=== PATIENT | female | born 1935 ===

== ENCOUNTER → 2023-01-15 09:49 | Outpatient (BNVA) | payer MEDICARE, OTHER, SELFPAY | PROVIDERS: Family Provider Physician Assistant Medical; PCP Family Medicine; Referring Provider Family Medicine; Visit Provider Dermatology | DX: L82.1 Other seborrheic keratosis (principal); L72.0 Epidermal cyst; L81.4 Other melanin hyperpigmentation; L82.0 Inflamed seborrheic keratosis; L29.8 Other pruritus; Z78.9 Other specified health status; L53.8 Other specified erythematous conditions; L57.0 Actinic keratosis | CPT/HCPCS: 17000; 17003; 17110; 99203 ==

== ENCOUNTER 2023-09-17 15:32 | Emergency (ER) | payer MEDICARE, OTHER, SELFPAY ==
[2023-09-17 15:44] VITALS: BP 137/67; PULSE 96; RESP 18; TEMP 39.1; O2SAT 93
--- NOTE | 2023-09-17 16:11 | XRR_ITS ---
PROCEDURE INFORMATION: Exam: XR Chest Exam date and time: 09/17/2023 4:01 PM Age: 87 years old Clinical indication: Shortness of breath TECHNIQUE: Imaging protocol: Radiologic exam of the chest. Views: 1 view. COMPARISON: CR XR cervical spine 4-5V [id number] 10/13/2017 11:06 AM FINDINGS: Lungs: Emphysematous changes. Pleural spaces: Unremarkable. No pleural effusion. No pneumothorax. Heart/Mediastinum: Unremarkable. No cardiomegaly. Bones/joints: Unremarkable. XR/XR chest 1V [id number] IMPRESSION: Emphysematous changes, negative for infiltrate.
[2023-09-17 16:39] LABS: Basophils % 0.5 %; Eosinophils % 0.2 %; Lymphocytes # 0.7 10^3/uL (0.8-4.8); Lymphocytes % 15.8 %; Mean Corpuscular HGB Conc 32.1 g/dL (30-55); Mean Corpuscular Hemoglobin 29.6 pg (27-33); Mean Corpuscular Volume 92.4 fl (85-98); Mean Platelet Volume 10.4 fL (7.4-10.4); Monocytes # 0.6 10^3/uL (0.2-0.9); Monocytes % 14.4 %; Neutrophils # 2.92 10^3/uL (1.8-7.7); Neutrophils % 68.9 %; Nucleated Red Blood Cells % 0 %; Platelet Count 199 10^3/cmm (157-399); Red Blood Count 4.22 10^6/uL (3.85-5.65); White Blood Count 4.24 10^3/uL (3.29-11.43)
[2023-09-17 17:13] LABS: Alanine Aminotransferase 14 U/L (0-33); Albumin Level 4.1 g/dL (3.5-5.2); Alkaline Phosphatase 108 U/L (35-105); Aspartate Amino Transferase 20 U/L (0-32); Blood Urea Nitrogen 14 mg/dL (8-23); Calcium 9.1 mg/dL (8.5-10.5); Carbon Dioxide 25 mmol/L (22-29); Chloride 99 mmol/L (98-107); Creatinine Clr Calc Pharmacy 41.1286; Globulin 3.2 g/dL (1.3-4.6); Glucose 115 mg/dL (65-115); Osmolality Calculated 281 mOsm/kg (285-295); Sodium 135 mmol/L (136-145); Total Bilirubin 0.2 mg/dL (0.15-1.2); Total Protein 7.3 g/dL (6.6-8.7)
--- NOTE | 2023-09-17 17:42 | ED_ITS ---
HPI - Fever 2 General: Chief Complaint: Fever Stated Complaint: Fever, Body aches, weakness Time Seen by Provider: 09/17/23 17:37 History of Present Illness: 87-year-old female with a history of hyp othyroidism and hypertension who presents to the emergency room with fever. She has had a cough and generalized weakness. She was diagnosed with flu today. Family says her temp was up to 104 and so they brought her to the emergency room. No altered mental status. No focal motor deficits. No chest pain. No abdominal pain. No nausea or vomiting. Review of Systems 2 Narrative: Constitutional symptoms: Negative except as documented in HPI. Skin symptoms: Negative except as documented in HPI. Eye symptoms: Negative except as documented in HPI. ENMT symptoms: Negative except as documented in HPI. Respiratory symptoms: Negative except as documented in HPI. Cardiovascular symptoms: Negative except as documented in HPI. Gastrointestinal symptoms: Negative except as documented in HPI. Genitourinary symptoms: Negative except as documented in HPI. Musculoskeletal symptoms: Negative except as documented in HPI. Neurologic symptoms: Negative except as documented in HPI. Psychiatric symptoms: Negative except as documented in HPI. Endocrine symptoms: Negative except as documented in HPI. PFSH ED 2 PFSH: Medical History (Updated 09/17/23 @ 19:12 by Jadyn Joy MD) Influenza A Flu-like symptoms Physical Exam 2 Narrative: EXAM NARRATIVE: General: Alert, no acute distress. Skin: Warm, dry. Head: Normocephalic, atraumatic. Neck: Supple, trachea midline. Eye: Extraocular movements are intact. Ears, nose, mouth and throat: Tacky oral mucosa Cardiovascular: Regular, Normal peripheral perfusion. Respiratory: Lungs are clear to auscultation, respirations are non-labored, breath sounds are equal, Symmetrical chest wall expansion. Gastrointestinal: Soft, Nontender, Non distended, Normal bowel sounds. Musculoskeletal: Normal ROM, no deformity. Neurological: Alert and oriented, No focal neurological deficit observed. Psychiatric: Cooperative, appropriate mood & affect. Course 2 Vital Signs: Vital signs: Vital Signs Temperature 102.3 F H 09/17/23 15:44 Pulse Rate 96 09/17/23 15:44 Respiratory Rate 18 09/17/23 15:44 Blood Pressure 137/67 09/17/23 15:44 Pulse Oximetry 93 09/17/23 15:44 Oxygen Delivery Me thod Room Air 04/12/24 15:44 MDM - Fever Medical Decision Making Medical decision making: Differential diagnosis including but not limited to and based on the above HPI, review of systems and physical exam: Patient with known flu with increasing weakness and uncontrolled fever. First gave some ibuprofen. Second check a chest x-ray to basic lab work. Orders placed to evaluate differential diagnosis based on the above differential, HPI and physical exam Lab Review: Laboratory results were reviewed and interpreted by myself the emergency room physician. Lab work is unremarkable. No leukocytosis. BUN and creatinine are 14 and 0.7. She did look a bit dehydrated so some fluids were given. Chest x-ray: No acute process. No infiltrate. No pneumothorax. No cardiomegaly. This was reviewed and interpreted by myself the ER physician. Reexamination: Patient looks a bit more perky on discharge. She is talking on the telephone. No increased work of breathing. No altered mental status. She says she feels ready to go home Lab Data 09/17/23 16:34 09/17/23 16:34 Laboratory Results WBC 4.24 10^3/uL (3.29-11.43) 09/17/23 16:34 RBC 4.22 10^6/uL (3.85-5.65) 09/17/23 16:34 Hgb 12.50 g/dL (11.27-16.99) 09/17/23 16:34 Hct 39.0 % (36-47) 09/17/23 16:34 MCV 92.4 fl (85-98) 09/17/23 16:34 MCH 29.6 pg (27-33) 09/17/23 16:34 MCHC 32.1 g/dL (30-55) 09/17/23 16:34 RDW 13.0 % (12.1-15.1) 09/17/23 16:34 Plt Count 199 10^3/cmm (157-399) 09/17/23 16:34 MPV 10.4 fL (7.4-10.4) 09/17/23 16:34 Neut % (Auto) 68.9 % 09/17/23 16:34 Lymph % (Auto) 15.8 % 09/17/23 16:34 Alpine % (Auto) 14.4 % 09/17/23 16:34 Eos % (Auto) 0.2 % 09/17/23 16:34 Baso % (Auto) 0.5 % 09/17/23 16:34 Neut # (Auto) 2.92 10^3/uL (1.8-7.7) 09/17/23 16:34 Lymph # (Auto) 0.7 10^3/uL (0.8-4.8) L 09/17/23 16:34 Alpine # (Auto) 0.6 10^3/uL (0.2-0.9) 09/17/23 16:34 Eos # (Auto) 0.0 10^3/uL (0.0-0.8) 09/17/23 16:34 Baso # (Auto) 0.0 10^3/uL (0.0-0.1) 09/17/23 16:34 Nucleated RBC % (auto) 0 % 09/17/23 16:34 Nucleated RBCs # 0.0 /100WBC 09/17/23 16:34 Sodium 135 mmol/L (136-145) L 09/17/23 16:34 Potassium 4.0 mmol/L (3.5-5.1) 09/17/23 16:34 Chloride 99 mmol/L (98-107) 09/17/23 16:34 Carbon Dioxide 25 mmol/L (22-29) 09/17/23 16:34 Anion Gap 15.0 (5-19) 09/17/23 16:34 BUN 14 mg/dL (8-23) 09/17/23 16:34 Creatinine 0.7 mg/dL (0.5-0.9) 09/17/23 16:34 GFR Calculation Not Reportable 09/17/23 16:34 Glucose 115 mg/dL (65-115) 09/17/23 16:34 Calculated Osmolality 281 mOsm/kg (285-295) L 09/17/23 16:34 Calcium 9.1 mg/dL (8.5-10.5) 09/17/23 16:34 Total Bilirubin 0.2 mg/dL (0.15-1.2) 09/17/23 16:34 AST 20 U/L (0-32) 09/17/23 16:34 ALT 14 U/L (0-33) 09/17/23 16:34 Alkaline Phosphatase 108 U/L (35-105) H 09/17/23 16:34 Total Protein 7.3 g/dL (6.6-8.7) 09/17/23 16:34 Albumin 4.1 g/dL (3.5-5.2) 09/17/23 16:34 Globulin 3.2 g/dL (1.3-4.6) 09/17/23 16:34 All radiology interpretation(s) finalized by discharge Other Data Assessment and plan: Influenza Dehydration -Fluid bolus, IV Decadron and p.o. Tamiflu - Discharged home - Discussed plan with patient. Answered any questions. - Evaluation and treatment of this problem were appropriate in the emergency setting. Discharge Plan Discharge Patient Disposition: Home Clinical Impression: Influenza A, Dehydration Condition: Stable Prescriptions: New Medrol 4 mg tablet 4 mg PO DAILY Qty: 5 0RF Tamiflu 75 mg capsule 75 mg PO BID 5 Days Qty: 10 0RF No Action fluoxetine 20 mg tablet 20 mg PO DAILY levothyroxine 88 mcg tablet 88 mcg PO DAILY losartan 50 mg tablet 50 mg PO DAILY Discharge Orders: Discharge ED (Routine); Ordered 09/17/23 Ordered By: Jadyn Joy Referrals: Rosalind Blum MD [Primary Care Provider] - (You have been screened and evaluated and felt safe for discharge. Health conditions do change or evolve sometimes and as such it is important that you follow up with your Primary Doctor to be re checked, 3-5 days is a general good time frame for follow up. You are always welcome to return to the ED for re assessment if your symptoms are worsening or you have new concerns) Discharge Diet: Usual diet Discharge Activity: Increase activity as tolerated Patient Instructions: Influenza (ED), Opioid Safety, Pain Management Coding Level of Care Code ED Teacher Instrumental for Stephanie Crocker
[2023-09-17] MEDS: ibuprofen 600 mg Tablet PO (18:02)
[2023-09-17] MEDS: oseltamivir phosphate 75 mg Capsule PO (18:03)
[2023-09-17] MEDS: sodium chloride 0.9% 500 ML 999 ML IV (18:05)
[2023-09-17] MEDS: dexamethasone 10 mg/mL INJ IVP (18:10)
== END 2023-09-17 19:33 | disposition home or self-care (01) ==
PROVIDERS: Emergency Provider Emergency Medicine; PCP Family Medicine
DX: J10.1 Influenza due to other identified influenza virus with other respiratory manifestations (principal); E86.0 Dehydration
CPT/HCPCS: 36415; 71045; 80053; 85025; 87400; 96374; 99284; J1100; J7040

== ENCOUNTER → 2024-01-17 10:22 | Outpatient (BNVA) | payer MEDICARE, OTHER, SELFPAY | PROVIDERS: PCP Family Medicine; Visit Provider Nurse Practitioner Family | DX: D48.5 Neoplasm of uncertain behavior of skin (principal); L57.0 Actinic keratosis; L82.1 Other seborrheic keratosis; L81.4 Other melanin hyperpigmentation; L73.8 Other specified follicular disorders | CPT/HCPCS: 11102; 17000; 99213 ==

== ENCOUNTER → 2024-02-14 12:58 | Outpatient (BNVA) | payer MEDICARE, OTHER, SELFPAY | PROVIDERS: PCP Family Medicine; Visit Provider Dermatology | DX: C44.01 Basal cell carcinoma of skin of lip (principal); L82.1 Other seborrheic keratosis; L81.4 Other melanin hyperpigmentation | CPT/HCPCS: 14060; 17311; 99213 ==

== ENCOUNTER → 2024-02-22 13:02 | Outpatient (BNVA) | payer MEDICARE, OTHER, SELFPAY | PROVIDERS: PCP Family Medicine; Visit Provider Dermatology | DX: Z48.02 Encounter for removal of sutures (principal); Z48.817 Encounter for surgical aftercare following surgery on the skin and subcutaneous tissue | CPT/HCPCS: 99212 ==

== ENCOUNTER → 2024-07-12 09:49 | Outpatient (BNVA) | payer MEDICARE, OTHER, SELFPAY | PROVIDERS: PCP Family Medicine; Visit Provider Nurse Practitioner Family | DX: L81.4 Other melanin hyperpigmentation (principal); L72.0 Epidermal cyst; Z08 Encounter for follow-up examination after completed treatment for malignant neoplasm; Z85.828 Personal history of other malignant neoplasm of skin; L57.0 Actinic keratosis | CPT/HCPCS: 17000; 99213 ==

== ENCOUNTER → 2025-01-09 10:03 | Outpatient (BNVA) | payer MEDICARE, SELFPAY | PROVIDERS: PCP Family Medicine; Visit Provider Nurse Practitioner Family | DX: L81.4 Other melanin hyperpigmentation (principal); L72.0 Epidermal cyst; L57.8 Other skin changes due to chronic exposure to nonionizing radiation; D18.01 Hemangioma of skin and subcutaneous tissue; L82.1 Other seborrheic keratosis; X32.XXXA Exposure to sunlight, initial encounter; Z08 Encounter for follow-up examination after completed treatment for malignant neoplasm; Z85.828 Personal history of other malignant neoplasm of skin; L57.0 Actinic keratosis | CPT/HCPCS: 17000; 99213 ==